=== PATIENT | female | born 1970 | race Caucasian/White ===

== ENCOUNTER 2016-05-25 13:30 | Outpatient (RCR) | payer OTHER | END 2016-06-08 | disposition home or self-care (01) | LOC: WSPT | DX: I89.0 Lymphedema, not elsewhere classified (principal); Z85.3 Personal history of malignant neoplasm of breast ==

== ENCOUNTER 2016-09-09 15:45 | Outpatient (RCR) | payer OTHER | END 2016-09-15 | disposition home or self-care (01) | LOC: WSPT | DX: I89.0 Lymphedema, not elsewhere classified (principal) ==

== ENCOUNTER 2016-09-30 10:53 | Outpatient (RCR) | payer OTHER | END 2016-12-29 | disposition home or self-care (01) | LOC: WSPT | DX: S52.135D Nondisplaced fracture of neck of left radius, subsequent encounter for closed fracture with routine healing (principal); I89.0 Lymphedema, not elsewhere classified ==